=== PATIENT | female | born 2005 | race Hispanic/Latino ===

== ENCOUNTER 2023-12-07 22:53 | Emergency (ER) | payer BC ==
[~2023-12-07] VITALS: Ht 154.9 cm; Wt 88.0 kg
[2023-12-08 00:36] LABS: BASOPHILS # (AUTO) 0.08 K/uL (0.00-0.20); BASOPHILS % (AUTO) 0.4 % (0.0-5.0); EOSINOPHILS # (AUTO) 0.07 K/uL (0.00-0.70); EOSINOPHILS % (AUTO) 0.4 % (0.0-8.0); HEMATOCRIT 38.9 % (36-48); IMMATURE GRANULOCYTE ABSOLUTE 0.08 K/uL (0-1); LYMPHOCYTES # (AUTO) 3.5 K/uL (1.0-4.8); LYMPHOCYTES % (AUTO) 18.8 % (21.0-51.0); MEAN CORPUSCULAR HEMOGLOBIN 26.4 pg (27.0-33.0); MEAN CORPUSCULAR HGB CONC 32.1 g/dL (32.0-36.0); MEAN CORPUSCULAR VOLUME 82.1 fL (80-100); MONOCYTES # (AUTO) 0.9 K/uL (0.1-1.0); MONOCYTES % (AUTO) 4.8 % (3.0-13.0); NEUTROPHILS # (AUTO) 13.9 K/uL (1.8-7.7); NEUTROPHILS % (AUTO) 75.2 % (40.0-77.0); PLATELET COUNT (AUTO) 354 K/uL (130-400); RED BLOOD CELL COUNT(AUTO) 4.74 MIL/uL (4.00-5.50); RED CELL DISTRIBUTION WIDTH 13.1 % (11.0-15.5); WHITE BLOOD COUNT (AUTO) 18.5 K/uL (4.8-10.8)
[2023-12-08 00:43] LABS: CREATININE 0.7 mg/dL (0.5-1.0); POTASSIUM 4.1 mmol/L (3.5-5.1)
[2023-12-08 02:25] VITALS: BP 142/78; PULSE 69; RESP 18; O2SAT 98
[2023-12-08] MEDS ORDERED: OCTYL 2-CYANOACRYLATE 1 EACH TP SCH (02:30)
== END 2023-12-08 02:27 | disposition home or self-care (01) ==
LOC: EDH 22:53
DX: R55 Syncope and collapse (principal)
CPT/HCPCS: 36415; 70450; 72125; 80048; 84703; 85025